=== PATIENT | female | born 1970 | race Caucasian/White ===

== ENCOUNTER 2017-11-25 09:14 | Day surgery (SDC) | payer BC ==
[~2017-11-25] VITALS: Ht 165.1 cm; Wt 55.9 kg
--- NOTE | ~2017-11-25 | OP ---
PATIENT NAME: STEVIE BAINS MEDICAL RECORD: [id number] :74 LOCATION:[facility] ADMISSION DATE: SURGEON: JENNIFER TEMPLETON DO DATE OF OPERATION: 11/25/2017 PROCEDURE: EGD. INDICATIONS: Cirrhosis of the liver and gastroesophageal varices. SCOPE: Olympus video gastroscope. MEDICATIONS: Propofol 100 mg IV per anesthesia. ESTIMATED BLOOD LOSS: None. COMPLICATIONS: None. FINDINGS: Informed consent was given. The patient was made comfortable with the above medication. After reaching an adequate level of sedation by slow IV push, the patient was placed on her left side. The endoscope was advanced under direct visualization through the mouth to the second portion of the duodenum. The upper and middle thirds of the esophagus appeared normal. In the distal esophagus, there were very mild grade I esophageal varices without any bleeding stigmata. The GE junction appeared normal without any obvious reflux changes. The endoscope was advanced beyond the GE junction into the stomach and retroflexed to view the cardia, which appeared normal. No gastric varices were observed endoscopically. The entire stomach exhibits [id number] diffuse portal hypertensive gastropathy. No biopsies were taken on today's examination as the patient's platelets are less than 50,000. The endoscope was advanced beyond the pylorus into the duodenum where there was some mild inflammation in the duodenal bulb. This cleared and appeared normal in the second portion of the duodenum. The endoscope was then withdrawn from the patient. The patient tolerated the procedure well and there were no complications. IMPRESSION: 1. Grade I esophageal varices without bleeding stigmata. 2. Portal hypertensive gastropathy. 3. Duodenitis involving the duodenal bulb, which was mild. PLAN AND RECOMMENDATIONS: 1. Discharge home when recovery parameters are met. 2. Continue current diet and medications. 3. Recall EGD in 1 year for continued surveillance of esophageal varices. TRANSINT:[id number] Voice Confirmation ID: [id number] DOCUMENT ID: [id number] JENNIFER TEMPLETON DO at 1421 CC: [id number] DICTATION DATE: 11/25/17 1226 VICE PRESIDENT SAFETY: 11/25/17 1526 [facility] [place] 11/25/17 [id number] [place] [address]
[2017-11-25 09:41] LABS: BASOPHILS 0.2 % (0-2); EOSINOPHILS 1.4 % (0-7); HEMATOCRIT 36.2 % (36.0-48.0); HEMOGLOBIN 12.9 g/dL (12-16); IMMATURE GRANULOCYTES 0.2 % (0-5); MCH 35.1 pg (26.0-34.0); MCHC 35.6 g/dL (31.0-37.0); MCV 98.6 fL (80.0-100.0); MEAN PLATELET VOLUME 11.4 fL (7.4-10.4); MONOCYTES 6.9 % (2-11); NEUTROPHILS 59.3 % (40-80); RBC 3.67 10x6/uL (4.00-5.40); RDW 12.8 % (11.5-14.5); WBC 4.9 10x3/uL (4.8-10.8)
[2017-11-25 09:43] LABS: PLATELET COUNT 45 10x3/uL (130-400)
[2017-11-25 09:49] LABS: INR 1.35 (0.85-1.17); PROTIME 16.2 SECONDS (11.6-15.0)
[2017-11-25 09:54] LABS: ALBUMIN 3.2 g/dL (3.4-5.0); ALKALINE PHOSPHATASE 69 U/L (46-116); ALT (SGPT) 16 U/L (10-68); BILIRUBIN - TOTAL 2.03 mg/dL (0.2-1.3); CALC OSMOLALITY 272 mosm/kg (275-300); CALCIUM 8.7 mg/dL (8.5-10.1); CARBON DIOXIDE 29.8 mmol/L (21.0-32.0); CHLORIDE - SERUM 102 mmol/L (98-107); CREATININE - SERUM 0.6 mg/dL (0.6-1.3); GLUCOSE 88 mg/dL (74-106); PROTEIN - SERUM 6.4 g/dL (6.4-8.2); SODIUM 138 mmol/L (136-145); UREA NITROGEN 7 mg/dL (7-18); eGFR NON AFRICAN AMERICAN > 90 mL/min (90-120)
[2017-11-25 10:34] VITALS: BP 91/48; Ht 165.1 cm; Wt 55.9 kg
[2017-11-25] MEDS ORDERED: FUROSEMIDE20 MG PO (10:45)
[2017-11-25] MEDS ORDERED: XANAX0.5 MG PO (10:46)
[2017-11-25] MEDS ORDERED: PROPRANOLOL HCL20 MG PO (10:46)
[2017-11-25] MEDS ORDERED: CHRONULAC30 ML PO (10:47)
[2017-11-25] MEDS ORDERED: ALDACTONE50 MG PO (10:48)
== END 2017-11-25 13:20 | disposition home or self-care (01) ==
LOC: D.OPS 09:14
PROVIDERS: Anesthesiology
DX: K76.6 Portal hypertension (principal); K31.89 Other diseases of stomach and duodenum; I85.10 Secondary esophageal varices without bleeding; K29.80 Duodenitis without bleeding